=== PATIENT | male | born 1980 | race African-American/Black ===

== ENCOUNTER 2024-10-03 10:20 | Emergency (ER) | payer OTHER ==
[~2024-10-03] VITALS: Ht 175.3 cm; Wt 111.0 kg
--- NOTE | 2024-10-03 10:31 | ECG ---
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
--- NOTE | 2024-10-03 10:36 | ED.PDOC ---
HPI Comments This is a 44 year old male presenting to the ED with chief complaint of chest pain. Patient reports that while sitting at work at 8am, he started to experience sudden onset, aching, dull, left sided chest pain at a 3/10 in pain. Patient relays that he has had similar chest pain in the past, but was told it was musculoskeletal at the time. Patient states he has no increased pain with movement or palpation. Patient denies any SOB, N/V, dizziness, headache, cough, fever, or chills. Chief Complaint: Chest Pain Time Seen by MD: 10:34 Reviewed Notes: Nurses Notes, Medications, Allergies Allergies: Coded Allergies: NO KNOWN ALLERGIES (Unverified , 10/03/24) Information Source: Patient Mode of Arrival: Ambulatory Severity: Moderate Timing: Hours Duration: Since onset Prehospital treatment: None Location: Chest (L) Radiation: No Radiation Quality: Aching Onset: At Rest Cardiac Risk Factors: Family History, HTN PE Risk Factors: None History of: Similar pain in past Associated Signs and Symptoms: None Past Medical History PAST MEDICAL HISTORY: HTN Surgical History: Appendectomy Surgical History (Other): Bilateral knee surgery Family History Family History: Reviewed,noncontributory to illness, Family hx of DM, Family hx of HTN Social History Smoker: Non-Smoker Alcohol: Occasionally Drugs: Denies Drug Use Lives In: Home Constitutional: denies: chills, diaphoresis, fatigue, fever, malaise, sweats, weakness, others EENTM: denies: blurred vision, double vision, ear bleeding, ear discharge, ear drainage, ear pain, ear ringing, eye pain, eye redness, hearing loss, mouth pain, mouth swelling, nasal discharge, nose bleeding, nose congestion, nose pain, photophobia, tearing, throat pain, throat swelling, voice changes, others Respiratory: denies: cough, hemoptysis, orthopnea, SOB at rest, shortness of breath, SOB with excertion, stridor, wheezing, others Cardiovascular: reports: chest pain; denies: dizzy spells, diaphoresis, Dyspnea on exertion, edema, irregular heart beat, left arm pain, lightheadedness, palpitations, PND, syncope, others Gastrointestinal: denies: abdomen distended, abdominal pain, blood streaked bowels, constipated, diarrhea, dysphagia, difficulty swallowing, hematemesis, melena, nausea, poor appetite, poor fluid intake, rectal bleeding, rectal pain, vomiting, others Genitourinary: denies: burning, dysuria, flank pain, frequency, hematuria, incontinence, penile discharge, penile sore, pain, testicle pain, testicle swelling, urgency, others Neurological: denies: dizziness, fainting, headache, left sided numbness, left sided weakness, numbness, paresthesia, pre-existing deficit, right sided numbness, right sided weakness, seizure, speech problems, tingling, tremors, weakness, others Musculoskeletal: denies: back pain, gout, joint pain, joint swelling, muscle pain, muscle stiffness, neck pain, others Integumetry: denies: bruises, change in color, change in hair/nails, dryness, laceration, lesions, lumps, rash, wounds, others Allergic/Immunocompromised: denies: Difficulty Healing, Frequent Infections, Hives, Itching, others Hematologic/Lymphatic: denies: anemia, blood clots, easy bleeding, easy bruising, swollen glands, others Endocrine: denies: excessive hunger, excessive sweating, excessive thirst, excessive urination, flushing, intolerance to cold, intolerance to heat, unexplained weight gain, unexplained weight loss, others Psychiatric: denies: anxiety, bipolar disorder, depression, hopeless, panic disorder, schizophrenia, sleepless, suicidal, others All Other Systems: Reviewed and Negative Physical Exam General Appearance: No Apparent Distress HEENT: Normal ENT Inspection, Pharynx Normal, TMs Normal Neck: Full Range of Motion, Non-Tender, Normal, Normal Inspection Respiratory: Lungs Clear, No Accessory Muscle Use, No Respiratory Distress, Normal Breath Sounds, Other (Tenderness to the left chest) Cardiovascular: No Edema, No JVD, No Murmur, No Gallop, Normal Peripheral Pulses, Regular Rate/Rhythm Breast Exam: Deferred Gastrointestinal: No Organomegaly, Non Tender, No Pulsatile Mass, Normal Bowel Sounds, Soft Genitalia: Deferred Pelvic: Deferred Rectal: Deferred Extremities: No calf tenderness, Normal capillary refill, Normal inspection, Normal range of motion, Non-tender, No pedal edema Musculoskeletal : Apperance: Normal 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 Was a procedure done?: No CP Differential Dx Differential Diagnosis: Angina, [place], Pulmonary Embolus Differential Diagnosis: CHF Differential Diagnosis: Pericarditis X-Ray, Labs, Meds, VS Vital Signs Date Time Temp Pulse Resp B/P (MAP) Pulse Ox O2 Delivery O2 Flow Rate FiO2 10/03/24 11:29 63 10/03/24 11:05 78 16 96 Room Air* 0 21 10/03/24 11:05 99.0 78 16 121/86 (98) 96 99.0 10/03/24 10:37 69 10/03/24 10:29 69 10/03/24 10:28 98.0 72 20 147/84 (105) 97 98.0 Lab Test 10/03/24 11:45 10/03/24 10:42 10/03/24 10:39 Range/Units Troponin I High Sensitivity < 3 L < 3 L </=54 ng/L White Blood Count 2.3 L 4.4-10.8 10^3/uL Red Blood Count 5.57 4.5-5.90 10^6/uL Hemoglobin 15.8 13.5-17.5 g/dL Hematocrit 46.5 41.0-53.0 % Mean Corpuscular Volume 83.3 80.0-100.0 fL Mean Corpuscular Hemoglobin 28.3 28.0-32.0 pg Mean Corpuscular Hemoglobin Concent 34.0 32.0-36.0 g/dL Red Cell Distribution Width 13.6 11.8-14.3 % Platelet Count 268 140-450 10^3/uL Mean Platelet Volume 7.9 6.9-10.8 fL Neutrophils (%) (Auto) 37.0-80.0 % Lymphocytes (%) (Auto) 10.0-50.0 % Monocytes (%) (Auto) 0.0-12.0 % Basophils (%) (Auto) 0.0-2.0 % Neutrophils # (Auto) 1.6-8.6 10 ^3/uL Lymphocytes # (Auto) 0.4-5.4 10 ^3/uL Monocytes # (Auto) 0-1.3 10 ^3/uL Differential Total Cells Counted 100.0 100 Neutrophils % (Manual) 44 37.0-80.0 Band Neutrophils % (Manual) 0 Lymphocytes % (Manual) 49 10.0-50.0 Monocytes % (Manual) 4 0-12 Eosinophils % (Manual) 3 0-7 Basophils % (Manual) 0 0.0-2.0 Metamyelocytes % (manual) 0 Myelocytes % (Manual) 0 Promyelocytes % (Manual) 0 Blast Cells % (Manual) 0 Reactive Lymphocytes 0 Platelet Estimate Adequate Sodium Level 143 136-145 mmol/L Potassium Level 4.0 3.5-5.1 mmol/L Chloride Level 106 98-107 mmol/L Carbon Dioxide Level 26 20-31 mmol/L Anion Gap 11 5-15 Blood Urea Nitrogen 6 L 9-23 mg/dL Creatinine 1.06 0.700-1.30 mg/dL Glomerular Filtration Rate Calc 89 >90 mL/min BUN/Creatinine Ratio 5.7 L 10.0-20.0 Serum Glucose 95 74-106 mg/dL Calcium Level 10.4 8.7-10.4 mg/dL Urine Color Yellow Yellow Urine Clarity Clear Clear Urine pH 7.0 5.0-9.0 Urine Specific [place] 1.023 1.001-1.035 Urine Protein Trace H Negative Urine Ketones Negative Negative Urine Blood Negative Negative /uL Urine Nitrite Negative Negative Urine Bilirubin Negative Negative Urine Urobilinogen Normal Negative mg/dL Urine Leukocyte Esterase Negative Negative /uL Urine RBC 2 0 - 3 /hpf Urine Microscopic WBC 1 0-3 /HPF Urine Squamous Epithelial Cells None seen <5 /hpf Urine Bacteria None seen None Seen /hpf Urine Mucus Few None Seen Urine Glucose Normal Normal mg/dL Current Medications Medications (Trade) Dose Ordered Sig/[facility] Route Start Time Stop Time Status Last Admin Aspirin 162 mg ONCE ONCE PO 10/03/24 10:45 10/03/24 10:46 DC 10/03/24 11:02 Chest XR indicates: No acute cardiopulmonary disease. The patient's CBC shows a white blood cell count of 2.3 The chemistry panel is within normal limits The patient's troponin level x2 is negative The urine test is negative for infection The patient was given aspirin 162 mg by mouth The patient is being discharged The patient will follow up with the primary care doctor The patient will return to the emergency department's condition worsens. We did speak with [place] and they did explain that the patient is currently on an immunosuppressant for his MS which the patient did not share with us upon taking his history They are going to follow up with the patient as an outpatient The authorization #[id number] Images Reviewed?: Images reviewed and evaluated by me Time of 1ST Reevaluation: 13:02 Reevaluation 1ST: Improved Patient Education/Counseling: Diagnosis, Treatment, Prognosis, Need For Follow Up Family Education/Counseling: No Family Present Additional Information Reviewed patient's previous visit(s): None The following tests were ordered, and results were reviewed by me: BMP, CBC, EKG, Troponin, Chest XR Additional information was gathered from interviewing the following independent historian: None I reviewed and agreed with the following test results read by other provider: Chest XR I discussed treatments and results with medical personnel and: PATIENT Comprehensive systems review obtained and negative except for what is stated in the HPI. SEPSIS Sepsis Screen Date sepsis recognized/suspect: Oct 03, 2024 Time Sepsis recognized/suspect: 1029 Recent Procedure: No On Antibiotic Therapy: No Respiratory Rate >20: No Heart Rate >90: No Temp<36 C (96.8 F) or >38.3 C: No SBP <90 or MAP <65 mmHG: No New Acute Mental Status Change: No Is the patient on CPAP, BIPAP,: No Physician Orders Troponin-I Hs (10/03/24 13:22) Electrocardigram (10/03/24 11:22) Electrocardigram (10/03/24 13:22) [place] Iv (10/03/24 10:33) Principal Mechanical Engineer (10/03/24 10:33) Blood Pressure (10/03/24 10:33) Pulse Oximetry (10/03/24 10:33) Chest Two Views Routine (10/03/24 10:33) Vital Signs Date Time Temp Pulse Resp B/P (MAP) Pulse Ox O2 Delivery O2 Flow Rate FiO2 10/03/24 11:29 63 10/03/24 11:05 78 16 96 Room Air* 0 21 10/03/24 11:05 99.0 78 16 121/86 (98) 96 99.0 10/03/24 10:37 69 10/03/24 10:29 69 10/03/24 10:28 98.0 72 20 147/84 (105) 97 98.0 Laboratory Tests Test 10/03/24 10:42 White Blood Count 2.3 10^3/uL (4.4-10.8) L Medications Medications Dose Ordered Sig/Carlos Route Start Time Stop Time Status Last Admin Dose Admin Aspirin 162 mg ONCE ONCE PO 10/03/24 10:45 10/03/24 10:46 DC 10/03/24 11:02 Departure 1 Departure Time of Disposition: 13:02 Impression: Primary Impression: Musculoskeletal chest pain Disposition: HOME / SELF CARE / HOMELESS Condition: Fair Discharged With: Self Critical Care Note Critical Care Time?: No Stability Stability form required: No Heart Score Heart Score: Heart Score Response (Comments) Value History Moderate Suspicious 1 EKG Normal 0 Age <45 0 Risk Factors 1 or 2 risk factors 1 Troponin Normal limit 0 Total 2 I personally scribed for SMILEY MANCIA MD ([email or web address]) on 10/03/24 at 10:36. Electronically submitted by Kaiden De Los Santos ([email or web address]). I personally scribed for SMILEY MANCIA MD ([email or web address]) on 10/03/24 at 10:37. Electronically submitted by Kaiden De Los Santos ([email or web address]). I personally scribed for SMILEY MANCIA MD ([email or web address]) on 10/03/24 at 10:37. Electronically submitted by Kaiden De Los Santos ([email or web address]). I personally scribed for SMILEY MANCIA MD ([email or web address]) on 10/03/24 at 11:45. Electronically submitted by Kaiden De Los Santos ([email or web address]). SMILEY MANCIA MD Oct 03, 2024 10:36
[2024-10-03] MEDS: ASPirin 81 mg TAB PO ONE (11:02)
[2024-10-03 11:05] VITALS: PULSE 78; RESP 16; O2SAT 96
[2024-10-03 11:09] LABS: Urine Bacteria None Seen /hpf (None Seen)
--- NOTE | 2024-10-03 11:15 | DVH ---
EXAM: XY CHEST TWO VIEWS ROUTINE CLINICAL HISTORY: CP COMPARISON: None TECHNIQUE: Frontal and lateral view of the chest was obtained FINDINGS: Lines and Tubes: None Lungs: No focal consolidation. Pleura: No effusion. No pneumothorax. Cardiomediastinal contours: Unremarkable Bones: No acute osseous abnormality. IMPRESSION: No acute cardiopulmonary disease.
[2024-10-03 11:16] LABS: Urine Blood Negative /uL (Negative); Urine Clarity Clear (Clear); Urine Color Yellow (Yellow); Urine Mucus FEW (None Seen); Urine Protein, UAD TRACE (Negative); Urine Specific Gravity 1.023 (1.001-1.035); Urine Squamous Epithelial Cell None Seen /hpf (<5); Urine Urobilinogen Normal (Negative); Urine WBC 1 /HPF (0-3)
[2024-10-03 11:18] LABS: Hematocrit 46.5 % (41.0-53.0); Hemoglobin 15.8 g/dL (13.5-17.5); Mean Corpuscular Hemoglobin 28.3 pg (28.0-32.0); Mean Corpuscular Volume 83.3 fL (80.0-100.0); Platelet Count (auto) 268 10^3/uL (140-450); Red Blood Cells 5.57 10^6/uL (4.5-5.90); Red Cell Distribution Width 13.6 % (11.8-14.3); White Blood Cell 2.3 10^3/uL (4.4-10.8)
[2024-10-03 11:24] LABS: Band Neutrophils % (manual) 0; Basophils % (manual) 0 (0.0-2.0); Blast Cells 0; Metamyelocytes % 0; Myelocytes % 0; Promyelocytes % 0; Reactive Lymphocytes 0
[2024-10-03 11:44] LABS: Chloride 106 mmol/L (98-107); Sodium 143 mmol/L (136-145)
[2024-10-03 11:45] LABS: Anion Gap 11 (5-15); Carbon Dioxide 26 mmol/L (20-31)
[2024-10-03 11:46] LABS: Calcium 10.4 mg/dL (8.7-10.4)
[2024-10-03 11:50] LABS: BUN/Creatinine Ratio 5.7 (10.0-20.0); Eosinophils % (manual) 3 (0-7); Glucose 95 mg/dL (74-106); Lymphocytes % (manual) 49 (10.0-50.0); Monocytes % (manual) 4 (0-12); Platelet Estimate Adequate
[2024-10-03 11:52] LABS: Blood Urea Nitrogen 6 mg/dL (9-23)
[2024-10-03 13:09] VITALS: BP 121/90; PULSE 54; RESP 16; TEMP 98.3; O2SAT 96
--- NOTE | 2024-10-04 07:07 | ECG ---
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
== END 2024-10-03 13:10 | disposition home or self-care (01) ==
LOC: ER 10:20
DX: R07.89 Other chest pain (principal); I10 Essential (primary) hypertension; Z90.49 Acquired absence of other specified parts of digestive tract
CPT/HCPCS: 36415; 71046; 80048; 81001; 84484; 85007; 85027; 93005